=== PATIENT | female | born 1985 | race Caucasian/White ===

== ENCOUNTER 2016-07-15 17:48 | Emergency (ER) | payer OTHER ==
[~2016-07-15] VITALS: Ht 154.9 cm; Wt 62.6 kg
[2016-07-15 17:57] VITALS: BP 158/60
--- NOTE | 2016-07-15 18:03 | NUR ---
PTBIB SELF C/O FOREHEAD PAIN X THURSDAY; PT STATES WAS IN [place], AND HIT HEAD ON METAL; PT DENIES LOC AT THIS TIME. DENIES DIZZINESS/N/V/BLURRY OF VISSION/P/SOB/F/COUGH/RUNNY NOSE.PT STATES SHE HAS A HEADACHE W/ PAIN SCALE OF 7/10.PT TOOK IBUPROFEN 800MG.DENIES ANY MEDICAL HX;AAOX4;NO ACUTE DISTRESS NOTED AT THIS TIME;NEEDS ATTENDED;SAFETY MEASURES INSTITUTED;SENIOR ENGINEERING SPECIALIST MADE AWARE OF PT'S CONDITION.
--- NOTE | 2016-07-15 18:11 | NUR ---
GALLERY INTERN AT BEDSIDE
--- NOTE | 2016-07-15 18:19 | NUR ---
PT LYING ON COMFORTABLY;NO ACUTE DISTRESS NOTED AT THIS TIME.
--- NOTE | 2016-07-15 18:35 | NUR ---
Patient discharged with v/s stable. Written and verbal after care instructions given and explained. Patient alert, oriented and verbalized understanding of instructions. Ambulatory with steady gait. All questions addressed prior to discharge. ID band removed. Patient advised to follow up with PMD. Rx of ULTRAM AND ACETAMINOPHEN given. Patient educated on indication of medication including possible reaction and side effects. Opportunity to ask questions provided and answered.
[2016-07-15 18:36] VITALS: BP 102/68
== END 2016-07-15 18:35 | disposition home or self-care (01) ==
LOC: MED 17:48
DX: S00.83XA Contusion of other part of head, initial encounter (principal); R03.0 Elevated blood-pressure reading, without diagnosis of hypertension; W22.8XXA Striking against or struck by other objects, initial encounter; Y93.89 Activity, other specified; Y92.89 Other specified places as the place of occurrence of the external cause; Y99.8 Other external cause status

== ENCOUNTER 2017-07-28 15:34 | Emergency (ER) | payer OTHER ==
[~2017-07-28] VITALS: Ht 154.9 cm; Wt 70.8 kg
[2017-07-28 15:51] VITALS: BP 112/77
--- NOTE | 2017-07-28 15:55 | NUR ---
Pt presents to ED with left ear pain 2/. Pt states she felt a pop with mild pain and is requesting physician check up. Pt is 28wks . VSS. ER MD aware. Positioned in bed for comfort. Continue to monitor.
--- NOTE | 2017-07-28 15:56 | NUR ---
PT AMBULATED TO BED 11
--- NOTE | 2017-07-28 16:31 | NUR ---
Patient seen and discharged by Dr. Parrish with v/s stable. Written and verbal after care instructions given and explained. Patient verbalized understanding. Ambulatory with steady gait. All questions addressed prior to discharge. Advised to follow up with PMD.
[2017-07-28 16:33] VITALS: BP 112/77
== END 2017-07-28 16:31 | disposition home or self-care (01) ==
LOC: MED 15:34
DX: O99.512 Diseases of the respiratory system complicating pregnancy, second trimester (principal); Z3A.27 27 weeks gestation of pregnancy
CPT/HCPCS: 99283

== ENCOUNTER 2017-08-31 11:05 | Observation (INO) | payer OTHER ==
[2017-08-31 12:33] VITALS: BP 100/60
[2017-08-31] MEDS ORDERED: PNV1TABL PO (13:35)
== END 2017-08-31 15:45 | disposition home or self-care (01) ==
LOC: MLD 11:05 → EDBD 11:05
PROVIDERS: ADMIT Obstetrics & Gynecology; ATTEND Obstetrics & Gynecology
DX: O26.893 Other specified pregnancy related conditions, third trimester (principal); R10.9 Unspecified abdominal pain; Z3A.31 31 weeks gestation of pregnancy
CPT/HCPCS: 36415; 76805; G0378; Q0092

== ENCOUNTER 2018-08-05 18:11 | Emergency (ER) | payer OTHER ==
[~2018-08-05] VITALS: Ht 157.5 cm; Wt 65.8 kg
[~2018-08-05 18:11] MED LIST: PNV1TABL PO
[2018-08-05 18:20] VITALS: BP 139/83
--- NOTE | 2018-08-05 18:22 | NUR ---
PT TRIAGED, GIVEN URINE CUP AND SENT TO ER LOBBY
--- NOTE | 2018-08-05 18:57 | NUR ---
PATIENT AMBULATED TO ER BED 2
[2018-08-05 18:58] LABS: HEMATOCRIT 44.5 % (36-48); HEMOGLOBIN 14.1 g/dL (12.0-16.0); MEAN CORPUSCULAR HEMOGLOBIN 26 pg (27-31); MEAN CORPUSCULAR HGB CONC 32 g/dL (33-37); MEAN CORPUSCULAR VOLUME 80.8 fL (80-94); PLATELET COUNT (AUTO) 308 K/uL (140-450); RED BLOOD CELL COUNT(AUTO) 5.51 MIL/uL (4.20-5.40); RED CELL DISTRIBUTION WIDTH 15.1 % (11.6-13.7); WHITE BLOOD COUNT (AUTO) 14.5 K/uL (4.8-10.8)
--- NOTE | 2018-08-05 19:08 | NUR ---
BIB SELF WITH C/O EPIGASTRIC PAIN 11/10 STATES THE PAIN WORSENS WHEN SHE IS EATING. STATES SHE HAS HAD N/V/D X 3 DAYS WITH 2 EPISODES OF VOMITING TODAY AND DIAHRREA "ALL DAY". DENIES OTHER SYMPTOMS. BED IN LOW LOCK POSITION.
[2018-08-05 19:20] LABS: EOSINOPHILS % (MANUAL) 34 % (0-4); LYMPHOCYTES % (MANUAL) 20 % (20-46); MONOCYTES % (MANUAL) 4 % (5-12)
[2018-08-05 19:21] LABS: ANION GAP 12.3 (8-16); CARBON DIOXIDE 29.5 mmol/L (21-32); CREATININE 0.6 mg/dL (0.6-1.3); POTASSIUM 3.8 mmol/L (3.5-5.1); TOTAL BILIRUBIN 0.3 mg/dL (0.0-1.0)
[2018-08-05 19:22] LABS: ALBUMIN 3.7 g/dL (3.4-5.0)
[2018-08-05 21:13] LABS: APPEARANCE,URINE CLEAR (CLEAR); BILIRUBIN,URINE NEGATIVE (NEGATIVE); BLOOD, URINE NEGATIVE (NEGATIVE); COLOR,URINE YELLOW (YELLOW); LEUKOCYTE ESTERASE ,URINE NEGATIVE (NEGATIVE); NITRITE, URINE NEGATIVE (NEGATIVE); PH,URINE 6.5 (5.0-9.0); UGLUCOSE NEGATIVE (NEGATIVE)
--- NOTE | 2018-08-05 21:30 | NUR ---
pateint taken to ct.
--- NOTE | 2018-08-05 22:35 | NUR ---
PATIENT REPORTS 01/[address] MONTALVO MADE AWARE
[2018-08-05] MEDS ORDERED: KETOROLAC 30 MG/ML VIAL IM ONE (22:50)
[2018-08-05 22:54] VITALS: BP 139/83
--- NOTE | 2018-08-05 22:54 | NUR ---
Patient discharged with v/s stable. Written and verbal after care instructions given and explained. Patient alert, oriented and verbalized understanding of instructions. Ambulatory with steady gait. All questions addressed prior to discharge. ID band removed. Patient advised to follow up with PMD. Rx of BENTYL, FLAGYL, ZOFRAN given. Patient educated on indication of medication including possible reaction and side effects. Opportunity to ask questions provided and answered.
== END 2018-08-05 22:53 | disposition home or self-care (01) ==
LOC: MED 18:11
DX: R10.13 Epigastric pain (principal); R11.2 Nausea with vomiting, unspecified; R19.7 Diarrhea, unspecified; Z79.899 Other long term (current) drug therapy
CPT/HCPCS: 36415; 80053; 81003; 82150; 83690; 84702; 85025; 99284; J1885

== ENCOUNTER 2018-08-09 14:55 | Emergency (ER) | payer OTHER ==
[~2018-08-09] VITALS: Ht 154.9 cm; Wt 62.6 kg
[2018-08-09 15:00] VITALS: BP 109/78
[2018-08-09 15:29] LABS: BASOPHILS % (AUTO) 0.5 % (0.0-2.0); EOSINOPHILS # (AUTO) 1.3 K/uL (0-0.4); EOSINOPHILS % (AUTO) 15.2 % (0.0-4.0); HEMATOCRIT 41.5 % (36-48); HEMOGLOBIN 13.2 g/dL (12.0-16.0); LYMPHOCYTES # (AUTO) 1.7 K/uL (2.5-16.5); LYMPHOCYTES % (AUTO) 19.7 % (20.5-51.1); MEAN CORPUSCULAR HEMOGLOBIN 26 pg (27-31); MEAN CORPUSCULAR HGB CONC 32 g/dL (33-37); MEAN CORPUSCULAR VOLUME 80.8 fL (80-94); MONOCYTES # (AUTO) 0.4 K/uL (0.8-1.0); MONOCYTES % (AUTO) 4.7 % (1.7-9.3); NEUTROPHILS # (AUTO) 5.1 K/uL (1.8-7.7); NEUTROPHILS % (AUTO) 59.9 % (42.2-75.2); PLATELET COUNT (AUTO) 287 K/uL (140-450); RED BLOOD CELL COUNT(AUTO) 5.14 MIL/uL (4.20-5.40); WHITE BLOOD COUNT (AUTO) 8.5 K/uL (4.8-10.8)
[2018-08-09 15:30] LABS: APPEARANCE,URINE SL CLOUDY (CLEAR); BILIRUBIN,URINE NEGATIVE (NEGATIVE); BLOOD, URINE NEGATIVE (NEGATIVE); COLOR,URINE YELLOW (YELLOW); LEUKOCYTE ESTERASE ,URINE NEGATIVE (NEGATIVE); NITRITE, URINE NEGATIVE (NEGATIVE); PH,URINE 8.5 (5.0-9.0); UGLUCOSE NEGATIVE (NEGATIVE)
[2018-08-09 15:40] LABS: ANION GAP 12.4 (8-16); CARBON DIOXIDE 29.5 mmol/L (21-32); CREATININE 0.7 mg/dL (0.6-1.3); POTASSIUM 3.9 mmol/L (3.5-5.1)
[2018-08-09 15:46] LABS: ALBUMIN 3.4 g/dL (3.4-5.0); TOTAL BILIRUBIN 0.2 mg/dL (0.0-1.0)
--- NOTE | 2018-08-09 17:06 | NUR ---
VITAL SIGNS TAKEN. EXPLAINED PATIENT THE PATIENT. PATIENT IN NO DISTRESS.
[2018-08-09 17:07] VITALS: BP 113/69
--- NOTE | 2018-08-09 17:30 | NUR ---
PT C/O LUQ ABD PAIN X6 DAYS. INTERMITENT SHARP LUQ ABD PAIN AT 02/10. PT REPORTS N/V. PT REOPRTS CHILLS AND BODY ACHES. DENIES UTI SYMPTOMS. PT SEEN AT [facility] ED THURSDAY FOR N/V/D.
--- NOTE | 2018-08-09 17:58 | NUR ---
Dr. Jimenez evaluating patient at bedside.
--- NOTE | 2018-08-09 18:50 | NUR ---
PT LEFT WITHOUT BEING SEEN. CHARGE AND ER DM NOTIFIED.
== END 2018-08-09 18:50 | disposition left against medical advice (07) ==
LOC: MED 14:55
DX: R10.12 Left upper quadrant pain (principal); R11.2 Nausea with vomiting, unspecified; R68.83 Chills (without fever); M79.10 Myalgia, unspecified site; Z53.21 Procedure and treatment not carried out due to patient leaving prior to being seen by health care provider
CPT/HCPCS: 36415; 80053; 81003; 83690; 85025; 99281; 99283

== ENCOUNTER 2021-01-08 17:07 | Emergency (ER) | payer OTHER ==
[~2021-01-08] VITALS: Ht 154.9 cm; Wt 68.9 kg
[2021-01-08 18:08] VITALS: BP 110/74
--- NOTE | 2021-01-08 18:16 | NUR ---
PT WAS TRIAGED AND TOLD TO WAIT IN LOBBY FOR ERMD EVALUATION AT THIS TIME.
--- NOTE | 2021-01-08 18:16 | NUR ---
35 Y/O F BIB SELF FROM HOME, C/O RASH/POSSIBLE ALLERGIC REACTION AFTER A LARGE INTAKE OF CHEESE, PT STATES SHE STARTED A KETO DIET AND HAD A BIG INTAKE OF CHEESE AND NOTICED A RASH ON NECK, CHEST AND ABD AREAS AFTER MEAL. C/O ITCHING AND "FEELING HOT" IN ACTIVE AREAS OF REDNESS. DENIES N/V/D; AAOX4 WITH EVEN AND STEADY GAIT; LUNGS CLEAR BL; HR EVEN AND REGULAR; PT DENIES ANY FEVER, CP, SOB, OR COUGH AT THIS TIME; PATIENT STATES PAIN OF 0/10 AT THIS TIME; VSS; PATIENT POSITIONED FOR COMFORT; HOB ELEVATED; BEDRAILS UP X2; BED DOWN. ER MD MADE AWARE OF PT STATUS. PMH: DENIES MED: JAMA FIGUEROAFRANCINE 2 TSP @1700 WITH SOME VISIBLE DECREASE IN RASH NKA
[2021-01-08] MEDS ORDERED: FAMO-92 PO (20:38)
[2021-01-08] MEDS ORDERED: PRED20TA5 PO (20:38)
[2021-01-08] MEDS ORDERED: CETI10SG1 PO (20:40)
[2021-01-08] MEDS ORDERED: EPIN0.3S IJ (20:40)
[2021-01-08] MEDS ORDERED: DEXAMETHASONE 4 MG/ML VIAL PO SCH (20:45)
[2021-01-08 20:50] VITALS: BP 118/72
--- NOTE | 2021-01-08 21:00 | NUR ---
Patient discharged with v/s stable. Written and verbal after care instructions given and explained. Patient alert, oriented and verbalized understanding of instructions. Ambulatory with steady gait. All questions addressed prior to discharge. ID band removed. Patient advised to follow up with PMD. Rx of PEPCID, ZYRTEC, EPINEPHRINE, AND PREDNISONE given. Patient educated on indication of medication including possible reaction and side effects. Opportunity to ask questions provided and answered.
== END 2021-01-08 21:00 | disposition home or self-care (01) ==
LOC: MED 17:07
DX: L50.0 Allergic urticaria (principal)
CPT/HCPCS: 99283; J1100